=== PATIENT | female | born 1990 | race Caucasian/White ===

== ENCOUNTER → 2017-12-13 | Outpatient (CLI) | payer BC, OTHER ==
[2017-12-23 07:45] LABS: CHLAMYDIA BY NAA Negative (Negative); GONOCOCCUS BY NAA Negative (Negative); TRICH VAG BY NAA Negative (Negative)
== END | disposition home or self-care (01) ==
LOC: LAB 11:06 → LAB SHORT 11:06
PROVIDERS: Obstetrics & Gynecology
DX: Z01.419 Encounter for gynecological examination (general) (routine) without abnormal findings (principal); Z11.3 Encounter for screening for infections with a predominantly sexual mode of transmission
CPT/HCPCS: 87491; 87591; 87661; G0123

== ENCOUNTER → 2018-01-28 | Outpatient (CLI) | payer BC, OTHER ==
[2018-01-28 09:49] LABS: BASOPHILS ABSOLUTE AUTO 0.05 K/mm3 (0.00-0.23); BASOPHILS PERCENT AUTO 1 % (0-2); EOSINOPHILS ABSOLUTE AUTO 0.17 K/mm3 (0.00-0.68); EOSINOPHILS PERCENT AUTO 2 % (0-6); Hematocrit 43.9 % (33.0-51.0); Hemoglobin 14.3 g/dL (11.5-16.0); IMMATURE GRAN ABSOLUTE AUTO 0.02 K/mm3 (0.00-0.10); IMMATURE GRAN PERCENT AUTO 0 % (0-1); LYMPHOCYTES ABSOLUTE AUTO 2.78 K/mm3 (0.84-5.20); LYMPHOCYTES PERCENT AUTO 34 % (21-46); MONOCYTES ABSOLUTE AUTO 0.48 K/mm3 (0.16-1.47); MONOCYTES PERCENT AUTO 6 % (4-13); Mean Corpuscular HGB Conc 32.6 g/dL (31.5-36.5); Mean Corpuscular Volume 95 fL (80-100); Mean Platelet Volume 9.8 fL (9.1-12.4); NEUTROPHILS ABSOLUTE AUTO 4.61 K/mm3 (1.96-9.15); NEUTROPHILS PERCENT AUTO 57 % (41-73); Platelet Count 324 K/mm3 (150-400); RDW Standard Deviation 45.7 fL (35.1-46.3); Red Blood Cell Count 4.62 M/mm3 (3.80-5.20); White Blood Cell Count 8.11 K/mm3 (4.00-11.30)
[2018-01-28 10:11] LABS: Alanine Aminotransfer (ALT/SGP 29 U/L (12-78); Albumin, Blood 3.7 g/dL (3.4-5.0); Alk Phos 70 U/L (50-136); Anion Gap 6 mmol/L (6-16); Aspartate Aminotrans (AST/SGOT 18 U/L (12-37); Bilirubin, Total 1.6 mg/dL (0.1-1.0); Blood Urea Nitrogen 18 mg/dL (8-24); Bun/Creatinine Ratio 24.5 (12.0-20.0); CO2, Blood 28 mmol/L (21-32); Calcium, Blood 8.9 mg/dL (8.5-10.1); Chloride, Blood 105 mmol/L (98-108); Creatinine, Blood 0.74 mg/dL (0.40-1.00); Globulin, Blood 3.6 g/dL (2.2-4.0); Glomerular Filtration Rate >60 (60-); Glucose, Blood 81 mg/dL (70-99); Potassium, Blood 4.3 mmol/L (3.5-5.5); Sodium, Blood 139 mmol/L (136-145); Total Protein, Blood 7.3 g/dL (6.4-8.2)
== END ==
LOC: LAB 09:33 → LAB SHORT 09:33
PROVIDERS: Nurse Practitioner
DX: E13.620 Other specified diabetes mellitus with diabetic dermatitis (principal); R23.3 Spontaneous ecchymoses
CPT/HCPCS: 80053; 83036; 84443; 85025

== ENCOUNTER → 2018-10-27 | Outpatient (CLI) | payer OTHER | LOC: LAB SHORT 10:37 → LAB EV 10:37 | DX: R53.83 Other fatigue (principal) | CPT/HCPCS: 84443 ==

== ENCOUNTER → 2019-03-09 | Outpatient (CLI) | payer OTHER | END | disposition home or self-care (01) | LOC: LAB SHORT 12:37 → LAB EV 12:37 | DX: J02.9 Acute pharyngitis, unspecified (principal) | CPT/HCPCS: 87081 ==

== ENCOUNTER → 2020-01-08 | Outpatient (CLI) | payer OTHER ==
[2020-01-09 10:48] LABS: Candida species (DNA Probe) Negative (NEGATIVE); G. vaginalis (DNA Probe) Negative (NEGATIVE); T. vaginalis (DNA Probe) Negative (NEGATIVE)
[2020-01-11 15:09] LABS: HPV 16 Negative (Negative); HPV 18 Negative (Negative); HPV OTHER HR TYPES Negative (Negative)
[2020-01-14 07:19] LABS: CHLAMYDIA TRACHOMATIS, NAA Negative (Negative); NEISSERIA GONORRHOEAE, NAA Negative (Negative)
== END | disposition home or self-care (01) ==
LOC: LAB 15:56 → LAB SHORT 15:56
PROVIDERS: Advanced Practice Midwife
DX: Z01.419 Encounter for gynecological examination (general) (routine) without abnormal findings (principal); N76.0 Acute vaginitis
CPT/HCPCS: 87480; 87491; 87510; 87591; 87624; 87660; G0123

== ENCOUNTER → 2020-08-20 | Outpatient (CLI) | payer OTHER ==
[~2020-08-20] MED LIST: ALBU90OI INH; BUPROPION XL150 M1 PO; Bentyl20 MG PO; EUTHYROX100 MC1 PO; PANTOPRAZOLE SO40 M2 PO; PRED20 PO; PROG100 PO
== END | disposition home or self-care (01) ==
LOC: LAB 16:44 → PLD 16:44 → LAB SHORT 16:44
DX: R14.0 Abdominal distension (gaseous) (principal); R19.8 Other specified symptoms and signs involving the digestive system and abdomen
CPT/HCPCS: 83993

== ENCOUNTER 2020-11-01 04:22 | Emergency (ER) | payer OTHER ==
[~2020-11-01] VITALS: Ht 175.3 cm; Wt 140.6 kg
[2020-11-01] MEDS ORDERED: EUTHYROX100 MC1 PO (04:52)
[2020-11-01] MEDS ORDERED: BUPROPION XL150 M1 PO (04:53)
[2020-11-01] MEDS ORDERED: PROG100 PO (04:53)
[2020-11-01] MEDS ORDERED: Bentyl20 MG PO (04:53)
[2020-11-01] MEDS ORDERED: PANTOPRAZOLE SO40 M2 PO (04:54)
[2020-11-01 05:30] LABS: BASOPHILS ABSOLUTE AUTO 0.07 K/mm3 (0.00-0.23); BASOPHILS PERCENT AUTO 1 % (0-2); EOSINOPHILS ABSOLUTE AUTO 0.74 K/mm3 (0.00-0.68); EOSINOPHILS PERCENT AUTO 9 % (0-6); Hematocrit 43.5 % (33.0-51.0); Hemoglobin 14.6 g/dL (11.5-16.0); IMMATURE GRAN ABSOLUTE AUTO 0.02 K/mm3 (0.00-0.10); IMMATURE GRAN PERCENT AUTO 0 % (0-1); LYMPHOCYTES ABSOLUTE AUTO 2.48 K/mm3 (0.84-5.20); LYMPHOCYTES PERCENT AUTO 28 % (21-46); MONOCYTES ABSOLUTE AUTO 0.64 K/mm3 (0.16-1.47); MONOCYTES PERCENT AUTO 7 % (4-13); Mean Corpuscular HGB 30.4 pg (26.0-34.0); Mean Corpuscular HGB Conc 33.6 g/dL (31.5-36.5); Mean Corpuscular Volume 90 fL (80-100); Mean Platelet Volume 9.3 fL (9.1-12.4); NEUTROPHILS ABSOLUTE AUTO 4.77 K/mm3 (1.96-9.15); NEUTROPHILS PERCENT AUTO 55 % (41-73); Platelet Count 356 K/mm3 (150-400); RDW Coefficient Variation 12.4 % (11.7-14.2); RDW Standard Deviation 41.1 fL (35.1-46.3); Red Blood Cell Count 4.81 M/mm3 (3.80-5.20); White Blood Cell Count 8.72 K/mm3 (4.00-11.30)
[2020-11-01 05:52] LABS: Alanine Aminotransfer (ALT/SGP 24 U/L (12-78); Albumin, Blood 3.4 g/dL (3.4-5.0); Albumin/Globulin Ratio 0.8 (0.8-1.8); Alk Phos 98 U/L (50-136); Anion Gap 4 mmol/L (6-16); Aspartate Aminotrans (AST/SGOT 12 U/L (12-37); Bilirubin, Total 0.4 mg/dL (0.1-1.0); Blood Urea Nitrogen 16 mg/dL (8-24); CO2, Blood 28 mmol/L (21-32); Calcium, Blood 8.7 mg/dL (8.5-10.1); Chloride, Blood 106 mmol/L (98-108); Creatinine, Blood 0.89 mg/dL (0.40-1.00); Globulin, Blood 4.1 g/dL (2.2-4.0); Glomerular Filtration Rate >60 (60-); Glucose, Blood 106 mg/dL (70-99); Potassium, Blood 3.9 mmol/L (3.5-5.5); Sodium, Blood 138 mmol/L (136-145); Total Protein, Blood 7.5 g/dL (6.4-8.2)
[2020-11-01] MEDS ORDERED: ALBU90OI INH (07:21)
[2020-11-01] MEDS ORDERED: PRED20 PO (07:21)
== END 2020-11-01 07:41 | disposition home or self-care (01) ==
LOC: ER 04:22
PROVIDERS: Emergency Medicine
DX: J98.01 Acute bronchospasm (principal); J40 Bronchitis, not specified as acute or chronic; Z79.899 Other long term (current) drug therapy
CPT/HCPCS: 71045; 80053; 85025; 85379; 94640; 94644; 96374; 99285-25; J1100

== ENCOUNTER 2023-06-14 21:17 | Observation (INO) | payer OTHER ==
[~2023-06-14] VITALS: Ht 175.3 cm; Wt 129.3 kg
[2023-06-14 21:31] VITALS: BP 112/70
[2023-06-14 21:58] LABS: BASOPHILS ABSOLUTE AUTO 0.09 K/mm3 (0.00-0.23); BASOPHILS PERCENT AUTO 1 % (0-2); EOSINOPHILS ABSOLUTE AUTO 0.74 K/mm3 (0.00-0.68); EOSINOPHILS PERCENT AUTO 6 % (0-6); Hematocrit 44.6 % (33.0-51.0); Hemoglobin 14.9 g/dL (11.5-16.0); IMMATURE GRAN ABSOLUTE AUTO 0.02 K/mm3 (0.00-0.10); IMMATURE GRAN PERCENT AUTO 0 % (0-1); LYMPHOCYTES ABSOLUTE AUTO 3.43 K/mm3 (0.84-5.20); LYMPHOCYTES PERCENT AUTO 28 % (21-46); MONOCYTES ABSOLUTE AUTO 0.77 K/mm3 (0.16-1.47); MONOCYTES PERCENT AUTO 6 % (4-13); Mean Corpuscular HGB 29.9 pg (26.0-34.0); Mean Corpuscular HGB Conc 33.4 g/dL (31.5-36.5); Mean Corpuscular Volume 90 fL (80-100); Mean Platelet Volume 9.4 fL (9.1-12.4); NEUTROPHILS ABSOLUTE AUTO 7.07 K/mm3 (1.96-9.15); NEUTROPHILS PERCENT AUTO 58 % (41-73); Platelet Count 369 K/mm3 (150-400); RDW Coefficient Variation 12.7 % (11.7-14.2); RDW Standard Deviation 41.4 fL (35.1-46.3); Red Blood Cell Count 4.98 M/mm3 (3.80-5.20); White Blood Cell Count 12.12 K/mm3 (4.00-11.30)
[2023-06-14 22:27] LABS: Albumin, Blood 3.6 g/dL (3.4-5.0); Albumin/Globulin Ratio 0.9 (0.8-1.8); Bilirubin, Total 0.7 mg/dL (0.1-1.0); Calcium, Blood 9.4 mg/dL (8.5-10.1); Creatinine, Blood 0.75 mg/dL (0.40-1.00); Globulin, Blood 4.2 g/dL (2.2-4.0); Potassium, Blood 3.6 mmol/L (3.5-5.5); Total Protein, Blood 7.8 g/dL (6.4-8.2)
[2023-06-15 05:16] LABS: BASOPHILS ABSOLUTE AUTO 0.06 K/mm3 (0.00-0.23); BASOPHILS PERCENT AUTO 1 % (0-2); EOSINOPHILS ABSOLUTE AUTO 0.22 K/mm3 (0.00-0.68); EOSINOPHILS PERCENT AUTO 2 % (0-6); Hematocrit 43.2 % (33.0-51.0); Hemoglobin 14.4 g/dL (11.5-16.0); IMMATURE GRAN ABSOLUTE AUTO 0.05 K/mm3 (0.00-0.10); IMMATURE GRAN PERCENT AUTO 0 % (0-1); LYMPHOCYTES ABSOLUTE AUTO 1.36 K/mm3 (0.84-5.20); LYMPHOCYTES PERCENT AUTO 10 % (21-46); MONOCYTES ABSOLUTE AUTO 0.46 K/mm3 (0.16-1.47); MONOCYTES PERCENT AUTO 4 % (4-13); Mean Corpuscular HGB Conc 33.3 g/dL (31.5-36.5); Mean Corpuscular Volume 90 fL (80-100); Mean Platelet Volume 9.4 fL (9.1-12.4); NEUTROPHILS ABSOLUTE AUTO 11.06 K/mm3 (1.96-9.15); NEUTROPHILS PERCENT AUTO 84 % (41-73); Platelet Count 350 K/mm3 (150-400); RDW Coefficient Variation 12.6 % (11.7-14.2); RDW Standard Deviation 41.6 fL (35.1-46.3); White Blood Cell Count 13.21 K/mm3 (4.00-11.30)
[2023-06-15 05:43] LABS: Albumin, Blood 3.6 g/dL (3.4-5.0); Albumin/Globulin Ratio 0.9 (0.8-1.8); Bilirubin, Total 0.7 mg/dL (0.1-1.0); Bun/Creatinine Ratio 19.6 (12.0-20.0); Calcium, Blood 9.3 mg/dL (8.5-10.1); Creatinine, Blood 0.66 mg/dL (0.40-1.00); Globulin, Blood 4.2 g/dL (2.2-4.0); Potassium, Blood 3.8 mmol/L (3.5-5.5); Total Protein, Blood 7.8 g/dL (6.4-8.2)
[2023-06-15] MEDS ORDERED: EUTHYROX175 MCG PO ×2 (20:31)
[2023-06-15] MEDS ORDERED: Prozac40 MG PO ×2 (20:32)
== END 2023-06-15 07:25 | disposition left against medical advice (07) ==
LOC: ER 21:17 → ERHOLD 21:18
PROVIDERS: Family Medicine; Student in an Organized Health Care Education/Training Program; ADMIT Internal Medicine
DX: R06.02 Shortness of breath (principal); J98.01 Acute bronchospasm; E03.9 Hypothyroidism, unspecified; Z86.16 Personal history of COVID-19; Z79.899 Other long term (current) drug therapy; Z53.29 Procedure and treatment not carried out because of patient's decision for other reasons
CPT/HCPCS: 36415; 71046; 80053; 85025; 93005; 93010; 94644; 94664; 99285-25; J1100

== ENCOUNTER 2023-06-15 17:28 | Inpatient (IN) | payer OTHER ==
[~2023-06-15] VITALS: Ht 170.2 cm; Wt 147.4 kg
[2023-06-15 18:50] LABS: Base Excess Venous -2.1 mmol/L; Bicarbonate Venous 23.1 mmol/L (24.0-30.0); PCO2 Venous 34.3 mmHg (38-42); pH Blood Venous 7.42 (7.34-7.37)
[2023-06-15 18:53] LABS: BASOPHILS ABSOLUTE AUTO 0.02 K/mm3 (0.00-0.23); BASOPHILS PERCENT AUTO 0 % (0-2); EOSINOPHILS PERCENT AUTO 0 % (0-6); Hematocrit 44.6 % (33.0-51.0); IMMATURE GRAN ABSOLUTE AUTO 0.09 K/mm3 (0.00-0.10); IMMATURE GRAN PERCENT AUTO 1 % (0-1); LYMPHOCYTES ABSOLUTE AUTO 1.38 K/mm3 (0.84-5.20); LYMPHOCYTES PERCENT AUTO 9 % (21-46); MONOCYTES ABSOLUTE AUTO 0.41 K/mm3 (0.16-1.47); MONOCYTES PERCENT AUTO 3 % (4-13); Mean Corpuscular HGB 29.8 pg (26.0-34.0); Mean Corpuscular HGB Conc 33.6 g/dL (31.5-36.5); Mean Corpuscular Volume 89 fL (80-100); Mean Platelet Volume 9.4 fL (9.1-12.4); NEUTROPHILS ABSOLUTE AUTO 13.94 K/mm3 (1.96-9.15); NEUTROPHILS PERCENT AUTO 88 % (41-73); Platelet Count 409 K/mm3 (150-400); RDW Coefficient Variation 12.8 % (11.7-14.2); RDW Standard Deviation 42.1 fL (35.1-46.3); Red Blood Cell Count 5.03 M/mm3 (3.80-5.20); White Blood Cell Count 15.84 K/mm3 (4.00-11.30)
[2023-06-15 19:14] LABS: Albumin, Blood 3.8 g/dL (3.4-5.0); Albumin/Globulin Ratio 0.8 (0.8-1.8); Bilirubin, Total 0.9 mg/dL (0.1-1.0); Bun/Creatinine Ratio 20.7 (12.0-20.0); Calcium, Blood 9.6 mg/dL (8.5-10.1); Creatinine, Blood 0.53 mg/dL (0.40-1.00); Globulin, Blood 4.6 g/dL (2.2-4.0); Potassium, Blood 4.5 mmol/L (3.5-5.5); Total Protein, Blood 8.4 g/dL (6.4-8.2)
[2023-06-15] MEDS ORDERED: EUTHYROX175 MCG PO ×2 (20:31)
[2023-06-15] MEDS ORDERED: Prozac40 MG PO ×2 (20:32)
[2023-06-15 21:16] LABS: Adenovirus Not Detected (NOT DETECT); Bordetella pertussis Not Detected (NOT DETECT); Chlamydophila pneumoniae Not Detected (NOT DETECT); Coronavirus 229E Not Detected (NOT DETECT); Coronavirus HKU1 Not Detected (NOT DETECT); Coronavirus NL63 Not Detected (NOT DETECT); Coronavirus OC43 Not Detected (NOT DETECT); Human Metapneumovirus Not Detected (NOT DETECT); Human Rhinovirus/Enterovirus Not Detected (NOT DETECT); Influenza A/2009-H1 Not Detected (NOT DETECT); Influenza A/H1 Not Detected (NOT DETECT); Influenza A/H3 Not Detected (NOT DETECT); Influenza B Not Detected (NOT DETECT); Mycoplasma pneumoniae Not Detected (NOT DETECT); Parainfluenza Virus 1 Not Detected (NOT DETECT); Parainfluenza Virus 2 Not Detected (NOT DETECT); Parainfluenza Virus 3 Not Detected (NOT DETECT); Parainfluenza Virus 4 Not Detected (NOT DETECT); Respiratory Syncytial Virus Not Detected (NOT DETECT); SARS-Cov-2 (COVID-19), BioFire Not Detected (NOT DETECT)
[2023-06-15 21:29] VITALS: BP 138/79
--- NOTE | 2023-06-16 02:24 | NUR ---
PT ARRIVED AT BEGINNING OF NOC SHIFT, AT 2130. PT TRANSFERED TO HOSPITAL BED INDEPENDENTLY. PT A&O x4, VSS. PT ON 4L VIA NC, OXYGEN SATURATION AT 94%. PT PLEASANT AND COOPERATIVE WITH CARE PROVIDED. PT ADMITTED FOR ASTHMA EXACERBATION. PT HAS BEEN EXPERIENCING SOB FOR 2-3 DAYS. PT C/O PAIN/DISCOMFORT TO UPPER BACK WITH BREATHING. LUNGS SOUND SLIGHTLY WHEEZY WITH EXHALATION. PRN MELATONIN GIVEN, WITH GOOD RESULTS. PT RECEIVING BREATHING TREATMENTS. CALL LIGHT WITHIN REACH, WCTM.
[2023-06-16 07:27] VITALS: BP 127/56
[2023-06-16 15:54] VITALS: BP 141/75
--- NOTE | 2023-06-16 17:58 | NUR ---
PATIENT A/OX4, UP INDEPENDENTLY IN ROOM. VSS, ON 3LO2. LUNGS WITH WHEEZES THROUGHOUT. RECEIVING TREATMENTS PER RT. TOLERATING REGULAR DIET. DENIES ANY NAUSEA OR ABDMINAL DISCOMFORT. SKIN INTACT. NO NEW CONCERNS THIS SHIFT.
[2023-06-16 20:51] VITALS: BP 140/76
[2023-06-17 04:02] VITALS: BP 126/72
[2023-06-17 05:26] LABS: Hematocrit 42.9 % (33.0-51.0); Hemoglobin 13.9 g/dL (11.5-16.0); Mean Corpuscular HGB 29.9 pg (26.0-34.0); Mean Corpuscular HGB Conc 32.4 g/dL (31.5-36.5); Mean Corpuscular Volume 92 fL (80-100); Mean Platelet Volume 9.6 fL (9.1-12.4); Platelet Count 343 K/mm3 (150-400); RDW Coefficient Variation 13.4 % (11.7-14.2); RDW Standard Deviation 45.2 fL (35.1-46.3); Red Blood Cell Count 4.65 M/mm3 (3.80-5.20); White Blood Cell Count 27.27 K/mm3 (4.00-11.30)
[2023-06-17 05:49] LABS: Bun/Creatinine Ratio 21.7 (12.0-20.0); Calcium, Blood 9.1 mg/dL (8.5-10.1); Creatinine, Blood 0.65 mg/dL (0.40-1.00); Potassium, Blood 3.9 mmol/L (3.5-5.5)
--- NOTE | 2023-06-17 06:58 | NUR ---
END OF SHIFT SUMMARY PT A&O x4, VSS, AFEBRILE. PT ON 3L VIA NC, MAINTAINING OXYGEN SATURATION AT 93%. GOAL IS TO OBTAIN OXYGEN SATURATION AT 96% IN ORDER TO TAPER DOWN OXYGEN TO 2L VIA NC. LUNG SOUNDS EXPIRATORY WHEEZING HEARD. PT INDEPENDENT WITH ADL s, UP AD ERNESTINA. PT DENIED PAIN/DISCOMFORT WITH BREATHING. RESP RATE EVEN AND UNLABORED. PT RECEIVING BREATHING TREATMENTS THROUGHOUT THE SHIFT. PRN MELATONIN GIVEN AND EFFECTIVE, PT SLEPT WELL. PT BECAME EMOTIONAL AND TEARY DURING ASSESSMENT. THERAPEUTIC COMMUNICATION AND ACTIVE LISTENING PROVIDED. PT KIND AND COOPERATIVE WITH CARE PROVIDED. PT ABLE TO MAKE NEEDS KNOWN, CALL LIGHT WITHIN REACH, WCTM.
[2023-06-17 07:24] VITALS: BP 123/61
[2023-06-17 15:25] VITALS: BP 135/69
--- NOTE | 2023-06-17 15:54 | NUR ---
PATIENT REPORTING INTERMITTENT SHARP CHEST PAIN POST BREATHING TREATMENT. VITALS SIGNS TAKEN AND ARE STABLE. DR. MATHEWS NOTIFIED, NO ORDERS RECEIVED.
--- NOTE | 2023-06-17 17:25 | NUR ---
PATIENT A/OX4, UP INDEPENDENTLY IN ROOM. VSS, ON 3LO2 TO MAINTAIN SATS >90%. LUNG SOUNDS WITH LESS WHEEZES TODAY. SOLUMEDROL DECREASED TO BID. PATIENT HAD ONE EPISODE OF SHARP INTERMITTENT CHEST PAIN. DR KENNEDY CAME TO BEDSIDE TO SEE PATIENT. NO ORDERS RECEIVED AND CHEST PAIN RESOLVED. PATIENT PLEASANT AND COOPERATIVE WITH CARE AND ABLE TO MAKE NEEDS KNOWN.
[2023-06-17 19:11] VITALS: BP 138/86
[2023-06-18 03:35] VITALS: BP 127/72
--- NOTE | 2023-06-18 04:23 | NUR ---
SHIFT SUMMARY PATIENT HAD NO ACUTE CHANGES. AXOX 4 AND INDEPENDENT IN ROOM. ON 3L O2 NC AND ROOM AIR BASELINE. IV SOLU-MEDROL GIVEN PER EMAR. MELATONIN 5 MG GIVEN FOR INSOMNIA. RT IN FOR BREATHING TX. DENIES CHEST PAIN AND N/V. READ ELECTRONIC BOOKS FIRST HALF OF SHIFT. COOPERATIVE WITH CARE. CALL LIGHT IN REACH. BED IN LOWEST POSITION. WILL CONTINUE TO MONITOR UNTIL DAY SHIFT NURSE ASSUMES CARE.
[2023-06-18 06:17] LABS: Hematocrit 41.6 % (33.0-51.0); Hemoglobin 13.8 g/dL (11.5-16.0); Mean Corpuscular HGB 30.4 pg (26.0-34.0); Mean Corpuscular HGB Conc 33.2 g/dL (31.5-36.5); Mean Corpuscular Volume 92 fL (80-100); Mean Platelet Volume 9.6 fL (9.1-12.4); Platelet Count 313 K/mm3 (150-400); RDW Coefficient Variation 13.2 % (11.7-14.2); RDW Standard Deviation 44.5 fL (35.1-46.3); Red Blood Cell Count 4.54 M/mm3 (3.80-5.20); White Blood Cell Count 14.52 K/mm3 (4.00-11.30)
[2023-06-18 06:43] LABS: Bun/Creatinine Ratio 29.2 (12.0-20.0); Calcium, Blood 8.6 mg/dL (8.5-10.1); Creatinine, Blood 0.58 mg/dL (0.40-1.00); Potassium, Blood 4.3 mmol/L (3.5-5.5)
[2023-06-18 07:47] VITALS: BP 146/87
[2023-06-18 16:46] VITALS: BP 165/84
--- NOTE | 2023-06-18 17:35 | NUR ---
NOTE PT ALERT. LUNGS COTNINUE TO BE WHEEZY T/O. ATTEMPTED TO WEAN FROM 2L N/C TO 1 L N/C. SHE WAS SAT 92% BUT HER HR WAS 108 AT REST. RETURNED TO 2L N/C. PT UP IN ROOM AD ERNESTINA. MILD SOB. SHE IS ABLE TO TALK EASILY WITHOUT SOB OR COUGHING. DENIED PAIN OR DISCOMFORT. CONTINUE POC.
[2023-06-18 19:51] VITALS: BP 150/91
[2023-06-18 21:12] VITALS: BP 145/73
[2023-06-18 22:12] VITALS: BP 140/89
[2023-06-19 04:53] LABS: Hematocrit 42.9 % (33.0-51.0); Hemoglobin 14.1 g/dL (11.5-16.0); Mean Corpuscular HGB 30.1 pg (26.0-34.0); Mean Corpuscular HGB Conc 32.9 g/dL (31.5-36.5); Mean Corpuscular Volume 92 fL (80-100); Mean Platelet Volume 9.2 fL (9.1-12.4); Platelet Count 301 K/mm3 (150-400); RDW Standard Deviation 43.4 fL (35.1-46.3); Red Blood Cell Count 4.69 M/mm3 (3.80-5.20); White Blood Cell Count 16.34 K/mm3 (4.00-11.30)
[2023-06-19 05:10] LABS: Bun/Creatinine Ratio 20.7 (12.0-20.0); Calcium, Blood 8.9 mg/dL (8.5-10.1); Creatinine, Blood 0.58 mg/dL (0.40-1.00); Potassium, Blood 4.4 mmol/L (3.5-5.5)
[2023-06-19 05:25] VITALS: BP 125/63
--- NOTE | 2023-06-19 06:17 | NUR ---
SHIFT SUMMARY PATIENT WITH SOME SHORTNESS OF BREATH EARLIER IN SHIFT, INCREASED OX TO 3PM. SOB AND CHEST PRESSURE RESOLVED ON MORE OXYGEN. RT PROVIDED BREATHING TREATMENTS. SLIGHT HEADACHE NOT RESOLVED THROUGH THE NIGHT. TYLENOL GIVEN WITH SOME RELIEF. BED IN LOW POSITION. CALL LIGHT IN REACH. PATIENT CALLS APPROPRIATELY.
[2023-06-19 07:27] VITALS: BP 133/82
[2023-06-19 14:58] VITALS: BP 162/96
[2023-06-19 19:36] VITALS: BP 146/80
--- NOTE | 2023-06-20 04:31 | NUR ---
SHIFT SUMMARY RT TURNED PATIENT O2 DOWN TO 1L FROM 3L. PATIENT REPORTS SOB AND ANXIETY AND ASKED FOR O2 TO BE PUT BACK TO 3L NC. STATING 94-95% ON 3L NC. RT IN FOR BREATHING TX. ANXIOUS AT TIMES. AXOX 4 AND INDEPENDENT IN ROOM. DENIES CHEST PAIN AND N/V. MELATONIN 5 MG GIVEN FOR INSOMNIA. SLEPT AFTER MIDNIGHT. CALL LIGHT IN REACH. BED IN LOWEST POSITION. WILL CONTINUE TO MONITOR UNTIL DAY SHIFT NURSE ASSUMES CARE.
[2023-06-20 04:48] VITALS: BP 131/83
[2023-06-20 05:03] LABS: Hematocrit 46.1 % (33.0-51.0); Hemoglobin 15.3 g/dL (11.5-16.0); Mean Corpuscular HGB 30.2 pg (26.0-34.0); Mean Corpuscular HGB Conc 33.2 g/dL (31.5-36.5); Mean Corpuscular Volume 91 fL (80-100); Mean Platelet Volume 9.3 fL (9.1-12.4); Platelet Count 353 K/mm3 (150-400); RDW Coefficient Variation 12.9 % (11.7-14.2); RDW Standard Deviation 42.5 fL (35.1-46.3); Red Blood Cell Count 5.06 M/mm3 (3.80-5.20); White Blood Cell Count 18.91 K/mm3 (4.00-11.30)
[2023-06-20 05:27] LABS: Bun/Creatinine Ratio 17.9 (12.0-20.0); Calcium, Blood 9.2 mg/dL (8.5-10.1); Creatinine, Blood 0.56 mg/dL (0.40-1.00); Potassium, Blood 4.2 mmol/L (3.5-5.5)
[2023-06-20 07:27] VITALS: BP 154/83
[2023-06-20 10:03] LABS: PCO2 Arterial 33.6 mmHg (35-45); PO2 Arterial 73.6 mmHg (80-100); pH Blood Arterial 7.49 (7.35-7.45)
[2023-06-20 16:20] VITALS: BP 129/79
--- NOTE | 2023-06-20 17:23 | NUR ---
SHIFT SUMMARY PT A&OX4 AND PLEASANT. NO C/O PAIN. PT DOES VERBAILIZE SOME TIGHTNESS IN LUNGS BUT STATES IT IS IMPROVED SINCE YESTERDAY. PT WAS ABLE TO BE TITRIATED, T/O DAY, OFF OF THE OXYGEN. PT HAS BEEN MAINTAING O2 SATURATION >93%. RT WORKED WITH PT T/O DAY. VSS. INDPENDENT IN ROOM. CALLS APPROPRIATELY. BED IN LOWEST POSITION AND CALL LIGHT IN REACH.
[2023-06-20 19:33] VITALS: BP 128/74
--- NOTE | 2023-06-21 01:33 | NUR ---
PT A&OX4, DENIES SOB OR DISTRESS, RT AT BEDSIDE FOR TREATMENT, PT REEPORTS ASA MAYBE POSSIBLE CAUSE AND PROVIDER WILL RULE OUT FOR RASH ON FACE AND RESPIRATORY ISSUES, PT DENIES PAIN AND DISCOMFORT, LUNGS ARE DIMINSHED AT BASES. REPORTS GERD LIKE INDIGESTION WHEN SITTING UP. PT IS INDEPENDENT ADLIB. BED LOWERED CALL LIG WITHIN REACH WILL CONTINUE TO MONITOR.
[2023-06-21 04:15] VITALS: BP 140/78
[2023-06-21 05:03] LABS: Hematocrit 45.9 % (33.0-51.0); Hemoglobin 15.2 g/dL (11.5-16.0); Mean Corpuscular HGB 29.9 pg (26.0-34.0); Mean Corpuscular HGB Conc 33.1 g/dL (31.5-36.5); Mean Corpuscular Volume 90 fL (80-100); Mean Platelet Volume 9.3 fL (9.1-12.4); Platelet Count 376 K/mm3 (150-400); RDW Coefficient Variation 12.8 % (11.7-14.2); RDW Standard Deviation 42.5 fL (35.1-46.3); Red Blood Cell Count 5.08 M/mm3 (3.80-5.20)
[2023-06-21 05:31] LABS: Bun/Creatinine Ratio 23.5 (12.0-20.0); Calcium, Blood 8.8 mg/dL (8.5-10.1); Creatinine, Blood 0.64 mg/dL (0.40-1.00)
[2023-06-21 07:45] VITALS: BP 133/76
[2023-06-21] MEDS ORDERED: ACET325 PO ×2 (12:12)
[2023-06-21] MEDS ORDERED: ALBU2.5V5 INH ×2 (12:12)
[2023-06-21] MEDS ORDERED: DULERA 100 MCG/13 GM INH ×2 (12:14)
[2023-06-21] MEDS ORDERED: IPRAT-ALBUT 0.5-3 ML INH ×2 (12:14)
[2023-06-21] MEDS ORDERED: PRED20 PO ×2 (12:15)
[2023-06-21] MEDS ORDERED: MONT10T PO ×2 (12:15)
--- NOTE | 2023-06-21 14:25 | NUR ---
DISCHARGE NOTE PT DISCHARGED HOME AT APPROX 14:15. PT PROVIDED W/ WRITTEN AND VERBAL INSTRUCTIONS AND REPORTED UNDERSTANDING. PT A&OX4, VSS, AMB IND, TOLERATING PO, VOIDING, AND DENIED PAIN. BELONGINGS WERE RETURNED AND PT ESCOURTED OUT VIA W/C BY JOSE FRANCISCO SLAUGHTER.
[2023-06-22 09:34] LABS: ANTI-NUCLEAR AB ANA,IGG ELISA None Detected (None Detected)
[2023-06-22 22:17] LABS: DOUBLE-STRANDED DNA IGG ELISA 7 IU (0-24)
== END 2023-06-21 15:17 | disposition home or self-care (01) | DRG 189 ==
LOC: ER 17:28 → MEDS 18:43 → ENPENDDIS 06-21 13:14 → MEDS 06-21 15:17
PROVIDERS: Family Medicine; Internal Medicine; Nurse Practitioner Acute Care; Student in an Organized Health Care Education/Training Program; ADMIT Student in an Organized Health Care Education/Training Program
PROC: 4A033R1 Measurement of Arterial Saturation, Peripheral, Percutaneous Approach (ICD-10-PCS; principal; 2023-06-20)
DX: J96.01 Acute respiratory failure with hypoxia (principal); J45.901 Unspecified asthma with (acute) exacerbation; Z68.43 Body mass index [BMI] 50.0-59.9, adult; F41.9 Anxiety disorder, unspecified; F32.A Depression, unspecified; Z11.52 Encounter for screening for COVID-19; L13.0 Dermatitis herpetiformis; K76.0 Fatty (change of) liver, not elsewhere classified; E03.9 Hypothyroidism, unspecified; F12.91 Cannabis use, unspecified, in remission; E66.01 Morbid (severe) obesity due to excess calories; K21.9 Gastro-esophageal reflux disease without esophagitis; Z86.16 Personal history of COVID-19
CPT/HCPCS: 0202U; 36415; 36600; 71260; 80048; 80053; 82803; 84703; 85025; 85027; 86038; 86225; 93005; 93010; 94640; 94644; 94664; 94760; 96374; 99285-25; A9270; J1650; J2930; J7030; Q9967

== ENCOUNTER 2023-08-07 17:29 | Emergency (ER) | payer OTHER ==
[~2023-08-07] VITALS: Ht 175.3 cm; Wt 147.4 kg
[~2023-08-07 17:29] MED LIST changes: +ACET325 PO; +ALBU2.5V5 INH; +DULERA 100 MCG/13 GM INH; +EUTHYROX175 MCG PO; +IPRAT-ALBUT 0.5-3 ML INH; +MONT10T PO; +Prozac40 MG PO
[2023-08-07 18:17] LABS: BASOPHILS ABSOLUTE AUTO 0.05 K/mm3 (0.00-0.23); BASOPHILS PERCENT AUTO 1 % (0-2); EOSINOPHILS ABSOLUTE AUTO 0.04 K/mm3 (0.00-0.68); EOSINOPHILS PERCENT AUTO 0 % (0-6); Hematocrit 37.7 % (33.0-51.0); IMMATURE GRAN ABSOLUTE AUTO 0.02 K/mm3 (0.00-0.10); IMMATURE GRAN PERCENT AUTO 0 % (0-1); LYMPHOCYTES ABSOLUTE AUTO 3.06 K/mm3 (0.84-5.20); LYMPHOCYTES PERCENT AUTO 33 % (21-46); MONOCYTES ABSOLUTE AUTO 0.75 K/mm3 (0.16-1.47); MONOCYTES PERCENT AUTO 8 % (4-13); Mean Corpuscular HGB 30.2 pg (26.0-34.0); Mean Corpuscular HGB Conc 34.5 g/dL (31.5-36.5); Mean Corpuscular Volume 88 fL (80-100); Mean Platelet Volume 9.6 fL (9.1-12.4); NEUTROPHILS PERCENT AUTO 58 % (41-73); Platelet Count 311 K/mm3 (150-400); RDW Coefficient Variation 13.1 % (11.7-14.2); RDW Standard Deviation 41.7 fL (35.1-46.3); Red Blood Cell Count 4.31 M/mm3 (3.80-5.20); White Blood Cell Count 9.32 K/mm3 (4.00-11.30)
[2023-08-07 18:32] LABS: Albumin, Blood 3.6 g/dL (3.4-5.0); Albumin/Globulin Ratio 1.1 (0.8-1.8); Bilirubin, Total 1.4 mg/dL (0.1-1.0); Bun/Creatinine Ratio 13.4 (12.0-20.0); Calcium, Blood 9.2 mg/dL (8.5-10.1); Creatinine, Blood 0.67 mg/dL (0.40-1.00); Globulin, Blood 3.3 g/dL (2.2-4.0); Total Protein, Blood 6.9 g/dL (6.4-8.2)
[2023-08-07] MEDS ORDERED: PRED20 PO (19:59)
[2023-08-07] MEDS ORDERED: Dapsone25 MG (20:06)
[2023-08-07 20:53] VITALS: BP 145/79
== END 2023-08-07 20:50 | disposition home or self-care (01) ==
LOC: ER 17:29
PROVIDERS: Physician Assistant
DX: J45.901 Unspecified asthma with (acute) exacerbation (principal); E03.9 Hypothyroidism, unspecified; Z79.52 Long term (current) use of systemic steroids; Z79.899 Other long term (current) drug therapy
CPT/HCPCS: 71046; 80053; 84484; 85025; 93005; 93010; 94640; 94664; 96374; 99285-25; J2930